=== PATIENT | male | born 1985 | race African-American/Black ===

== ENCOUNTER 2019-03-28 17:32 | Emergency (ER) | payer SELFPAY ==
[2019-03-28 19:05] VITALS: BP 110/80
--- NOTE | 2019-03-28 19:44 | UC ---
HPI Wound/Suture Re-check - HPI Summary HPI Summary: Patient is a 34yo male presenting for suture removal after cutting his head with a coffee mug when he fell 1 week ago. Patient states 13 stitches were placed at [facility]. Notes some tenderness still. Denies drainage or bleeding. Denies fever and chills. Denies n/v. - History Of Current Complaint Chief Complaint: UCSkin Stated Complaint: SUTURE REMOVAL Hx Obtained From: Patient Severity: Mild Pain Intensity: 2 Pain Scale Used: 0-10 Numeric - Allergies/Home Medications Allergies/Adverse Reactions: Allergies Allergy/AdvReac Type Severity Reaction Status Date / Time shellfish derived Allergy Anaphylatic Verified 03/28/19 19:05 Shock Home Medications: Home Medications Albuterol HFA INHALER* [Ventolin HFA Inhaler*] 2 puff INH Q4H PRN 03/28/19 [ History Confirmed 03/28/19] PMH/Surg Hx/FS Hx/Imm Hx - Surgical History Surgical History: Yes Surgery Procedure, Year, and Place: tib/fib surgery - Social History Alcohol Use: Rare Substance Use Type: Marijuana Smoking Status (MU): Light Every Day Tobacco Smoker Review of Systems All Other Systems Reviewed And Are Negative: No Constitutional: Positive: Negative Skin: Positive: Other - multiple stitches in forehead lacerations Respiratory: Positive: Negative Cardiovascular: Positive: Negative Neurological: Positive: Negative Physical Exam Triage Information Reviewed: Yes Appearance: Well-Appearing, No Pain Distress Vital Signs: Initial Vital Signs Temp 98.6 F 03/28/19 19:00 Pulse 66 03/28/19 19:00 Resp 16 03/28/19 19:00 BP 110/80 03/28/19 19:00 Pulse Ox 100 03/28/19 19:00 Vital Signs Reviewed: Yes Eyes: Positive: Conjunctiva Clear ENT: Positive: Hearing grossly normal Neck: Positive: Supple Respiratory: Positive: No respiratory distress Neurological: Positive: Alert Psychological: Positive: Age Appropriate Behavior Skin: Positive: Other - multiple healing lacerations noted on forehead. no drainage. no signs of infection. Course/Dx - Course Course Of Treatment: I removed 12 sutures from patient's forehead. He states 13 were placed so it is possible one already fell out. Discussed to continue with gently wsah and to apply scar cream once fully healed. Patient voiced understanding and agreed with treatment plan. - Diagnosis Provider Diagnosis: Encounter for removal of sutures Discharge ED - Sign-Out/Discharge Documenting (check all that apply): Patient Departure All imaging exams completed and their final reports reviewed: No Studies - Discharge Plan Condition: Stable Disposition: HOME Additional Instructions: As discussed, 12 stitches were removed fro your forehead. It is possible that the last stitch already fell out on its own. Continue to wash gently with soap and water daily. When scabs have fully healed and fallen off, you may start to use an over the counter scar cream to help reduce scarring. Return or go to the Ed if you notice any redness, warmth, or drainage from the wounds. - Billing Disposition and Condition Condition: STABLE Disposition: Home
== END 2019-03-28 19:53 | disposition home or self-care (01) ==
LOC: UCCORT 17:32
DX: S01.81XD Laceration without foreign body of other part of head, subsequent encounter (principal); F17.290 Nicotine dependence, other tobacco product, uncomplicated; Z91.013 Allergy to seafood; W45.8XXD Other foreign body or object entering through skin, subsequent encounter
CPT/HCPCS: 99201; G0463

== ENCOUNTER 2023-03-30 10:13 | Observation (INO) ==
[2023-03-30 11:44] LABS: ABS Basophils 0.1 10^3/uL (0.0-0.1); ABS Lymphocytes 1.5 10^3/uL (1.0-4.8); ABS Monocytes 0.3 10^3/uL (0.0-1.1); ABS Nucleated RBC 0.02 10^3/ul; Eosinophil % 0.2 %; Hematocrit 43.3 % (38-53); Hemoglobin 14.8 g/dL (13.2-16.3); Lymphocyte % 14.8 %; Mean Corpuscular Hemoglobin 29.7 pg (27-33); Mean Corpuscular Hgb Conc 34.2 g/dL (31-36); Mean Corpuscular Volume 86.7 fL (80-97); Mean Platelet Volume 6.7 fL (7.5-11.2); Nucleated Red Blood Cells % 0.2 %/100WBC (0.0-0.8); Platelet Count 294 10^3/uL (150-450); White Blood Count 9.9 10^3/uL (3.6-10.2)
[2023-03-30 12:01] LABS: ALT 19 U/L (7-52); AST 22 U/L (13-39); Albumin 4.4 g/dL (3.2-5.2); Albumin/Globulin Ratio 1.5 (1-3); Alkaline Phosphatase 71 U/L (35-149); Anion Gap 6 mmol/L (2-16); Blood Urea Nitrogen 13 mg/dL (6-24); CO2 Carbon Dioxide 27 mmol/L (22-32); Calcium 9.2 mg/dL (8.6-10.3); Chloride 105 mmol/L (101-111); Creatinine, Serum 1.02 mg/dL (0.67-1.17); Globulin 2.9 g/dL (2-4); Glucose 124 mg/dL (70-100); Magnesium 1.9 mg/dL (1.9-2.7); Potassium 3.9 mmol/L (3.5-5.0); Sodium 138 mmol/L (135-145); Total Bilirubin 0.5 mg/dL (0.2-1.0); Total Protein 7.3 g/dL (6.4-8.9); eGFR CKD-EPI 97.1 (>60)
[2023-03-30 12:02] LABS: INR 1.04 (0.83-1.13)
[2023-03-30 12:07] LABS: High Sens Troponin Baseline 8 pg/mL (<20)
[2023-03-30 12:30] LABS: Alcohol, S < 13 mg/dL (<13)
[2023-03-30 13:10] LABS: High Sensitivity Troponin 1 Hr 7 pg/mL (<20)
[2023-03-30] MEDS ORDERED: Famotidine IV 10 MG/ML 2 ml VIAL (20 mg) IV SLOW PU ONE (14:29)
[2023-03-30] MEDS ORDERED: Al Hydrox/Mg Hydrox/Simet LIQ 30 ML UDC PO ONE (14:29)
[2023-03-30] MEDS: Nicotine GUM 2MG FRUIT FLAVOR PO PRN (17:46)
[2023-03-31] MEDS: Nicotine PATCH 7 MG/24 HR PATCH TRANSDERM SCH (09:33)
[2023-03-31] MEDS ORDERED: Lorazepam PYXIS KEY PRN (15:15)
[2023-03-31] MEDS ORDERED: LORazepam 2 mg VIAL 1 ml IV PUSH ONE (15:15)
[2023-03-31 15:32] LABS: HDL Cholesterol 73.1 mg/dL
[2023-03-31 16:09] LABS: Urine Benzodiazepine Screen None Detected (None Detect); Urine Cannabinoids Screen Presumptive Positive (None Detect); Urine Opiates Screen None Detected (None Detect)
[2023-04-01] MEDS ORDERED: Aspirin EC 81 mg TAB.EC (enteric coated) PO SCH (09:00)
[2023-04-01 09:02] LABS: ABS Eosinophils 0.1 10^3/uL (0.0-0.5); ABS Monocytes 0.8 10^3/uL (0.0-1.1); ABS Neutrophils 4.5 10^3/uL (1.5-7.6); ABS Nucleated RBC 0.02 10^3/ul; Hematocrit 45.6 % (38-53); Hemoglobin 15.4 g/dL (13.2-16.3); Lymphocyte % 27.1 %; Mean Corpuscular Hemoglobin 29.4 pg (27-33); Mean Corpuscular Hgb Conc 33.7 g/dL (31-36); Mean Corpuscular Volume 87.1 fL (80-97); Mean Platelet Volume 7.1 fL (7.5-11.2); Nucleated Red Blood Cells % 0.3 %/100WBC (0.0-0.8); Platelet Count 326 10^3/uL (150-450); Red Blood Count 5.24 10^6/uL (4.06-5.63); Red Cell Distribution Width 13.8 % (12-17); White Blood Count 7.3 10^3/uL (3.6-10.2)
[2023-04-01 09:25] LABS: Albumin 4.5 g/dL (3.2-5.2); Albumin/Globulin Ratio 1.5 (1-3); Calcium 9.6 mg/dL (8.6-10.3); Creatinine, Serum 1.13 mg/dL (0.67-1.17); HDL Cholesterol 69.2 mg/dL; Magnesium 2.2 mg/dL (1.9-2.7); Potassium 4.5 mmol/L (3.5-5.0); Total Protein 7.5 g/dL (6.4-8.9); eGFR CKD-EPI 85.9 (>60)
[2023-04-01] MEDS ORDERED: Regadenoson 0.4 MG/5 ML SYRINGE ONE (10:21)
[2023-04-01] MEDS ORDERED: Aminophylline 25 MG/ML VIAL ONE (10:21)
[2023-04-01] MEDS ORDERED: Ondansetron 4 mg VIAL 2 MG/ML 2 ml VIAL ONE (10:30)
[2023-04-01] MEDS: Nicotine PATCH 7 MG/24 HR PATCH TRANSDERM SCH (15:18)
[2023-04-01] MEDS: Nicotine GUM 2MG FRUIT FLAVOR PO PRN (15:35)
[2023-04-01 15:40] VITALS: BP 131/82
== END 2023-04-01 18:05 | disposition home or self-care (01) ==
LOC: ED 10:13 → EDHOLD 10:13 → SUATTDRO 15:18 → EDHOLD 03-31 15:23 → MEDTELE 03-31 15:25
PROVIDERS: ADMIT Internal Medicine; ATTEND Student in an Organized Health Care Education/Training Program

== ENCOUNTER 2023-12-01 14:28 | Observation (INO) ==
[2023-12-01 14:55] LABS: ABS Basophils 0.1 10^3/uL (0.0-0.1); ABS Eosinophils 0.2 10^3/uL (0.0-0.5); ABS Lymphocytes 1.7 10^3/uL (1.0-4.8); ABS Monocytes 0.6 10^3/uL (0.0-1.1); ABS Neutrophils 4.5 10^3/uL (1.5-7.6); Eosinophil % 2.3 %; Hematocrit 39.6 % (38-53); Hemoglobin 13.6 g/dL (13.2-16.3); Lymphocyte % 24.4 %; Mean Corpuscular Hemoglobin 29.7 pg (27-33); Mean Corpuscular Hgb Conc 34.4 g/dL (31-36); Mean Corpuscular Volume 86.5 fL (80-97); Mean Platelet Volume 6.8 fL (7.5-11.2); Platelet Count 287 10^3/uL (150-450); Red Blood Count 4.57 10^6/uL (4.06-5.63); Red Cell Distribution Width 14.4 % (12-17); White Blood Count 7.1 10^3/uL (3.6-10.2)
[2023-12-01 15:07] LABS: INR 1.05 (0.83-1.13)
[2023-12-01 15:21] LABS: High Sens Troponin Baseline 7 pg/mL (<20)
[2023-12-01 15:38] LABS: ALT 24 U/L (7-52); AST 50 U/L (13-39); Albumin 4.3 g/dL (3.2-5.2); Albumin/Globulin Ratio 1.5 (1-3); Alkaline Phosphatase 80 U/L (35-149); Anion Gap 7 mmol/L (2-16); Blood Urea Nitrogen 15 mg/dL (6-24); CO2 Carbon Dioxide 26 mmol/L (22-32); Calcium 9.3 mg/dL (8.6-10.3); Chloride 105 mmol/L (101-111); Creatinine, Serum 0.98 mg/dL (0.67-1.17); Globulin 2.9 g/dL (2-4); Glucose 137 mg/dL (70-100); Sodium 138 mmol/L (135-145); Total Bilirubin 0.5 mg/dL (0.2-1.0); Total Protein 7.2 g/dL (6.4-8.9); eGFR CKD-EPI 101.9 (>60)
[2023-12-01] MEDS: Acetaminophen IV 1 GM/100ML 1,000 MG/100 ML BAG IV ONE (15:46)
[2023-12-01] MEDS: Lactated Ringers 1000 ml BAG 1,000 ML IV ONE ×2 (15:47→17:46)
[2023-12-01 15:54] LABS: Alcohol, S < 13 mg/dL (<13)
[2023-12-01 16:13] LABS: Prolactin 2.1 ng/mL (1.0-20.0)
[2023-12-01 16:24] LABS: Creatine Kinase 3012 U/L (10-223)
[2023-12-01 16:52] LABS: High Sensitivity Troponin 1 Hr 8 pg/mL (<20)
[2023-12-01] MEDS: Iohexol 350 (CONTRAST) 500 ML MDV IV ONE (17:00)
[2023-12-01] MEDS: Nitro 2% OINT (Nitroglycerin) 1 INCH/PAK TOPICAL ONE (18:11)
[2023-12-01 21:27] LABS: Urine Appearance Clear; Urine Bilirubin Negative (Negative); Urine Blood Negative (Negative); Urine Color Yellow; Urine Glucose Negative (Negative); Urine Ketones Negative (Negative); Urine Nitrite Negative (Negative); Urine Protein Trace (Negative); Urine Specific Gravity >1.050 (1.002-1.030); Urine Urobilinogen Negative (Negative)
[2023-12-02] MEDS: Lactated Ringers 1000 ml BAG 1,000 ML IV SCH (00:05)
[2023-12-02] MEDS: Acetaminophen IV 1 GM/100ML 1,000 MG/100 ML BAG IV PRN (00:05)
[2023-12-02] MEDS: Acetaminophen IV 1 GM/100ML 1,000 MG/100 ML BAG IV ONE (00:27)
[2023-12-02] MEDS ORDERED: Albuterol HFA INHALER 8 gm MDI INH PRN (00:55)
[2023-12-02] MEDS ORDERED: Nicotine GUM 4MG FRUIT FLAVOR PO PRN (01:00)
[2023-12-02 06:23] LABS: ABS Eosinophils 0.3 10^3/uL (0.0-0.5); ABS Lymphocytes 2.1 10^3/uL (1.0-4.8); ABS Monocytes 0.6 10^3/uL (0.0-1.1); ABS Neutrophils 4.3 10^3/uL (1.5-7.6); Eosinophil % 3.7 %; Hematocrit 39.4 % (38-53); Hemoglobin 13.4 g/dL (13.2-16.3); Mean Corpuscular Hemoglobin 29.6 pg (27-33); Mean Corpuscular Hgb Conc 34.1 g/dL (31-36); Mean Corpuscular Volume 86.9 fL (80-97); Mean Platelet Volume 7.2 fL (7.5-11.2); Platelet Count 269 10^3/uL (150-450); Red Blood Count 4.54 10^6/uL (4.06-5.63); Red Cell Distribution Width 13.9 % (12-17); White Blood Count 7.3 10^3/uL (3.6-10.2)
[2023-12-02 07:20] LABS: Magnesium 1.9 mg/dL (1.9-2.7)
[2023-12-02 07:36] LABS: Anion Gap 6 mmol/L (2-16); Blood Urea Nitrogen 10 mg/dL (6-24); CO2 Carbon Dioxide 26 mmol/L (22-32); Calcium 8.6 mg/dL (8.6-10.3); Chloride 105 mmol/L (101-111); Glucose 94 mg/dL (70-100); Sodium 137 mmol/L (135-145); eGFR CKD-EPI 116.9 (>60)
[2023-12-02] MEDS: Aspirin EC 81 mg TAB.EC (enteric coated) PO SCH (07:51)
[2023-12-02] MEDS: Ondansetron ODT 4 mg TAB 4 MG TAB PO PRN (08:33)
[2023-12-02] MEDS ORDERED: Ondansetron 4 mg VIAL 2 MG/ML 2 ml VIAL IV PRN ×2 (13:14→13:28)
[2023-12-02] MEDS: Prochlorperazine 5 mg/ml 2 ml VIAL (10 mg) IV ONE (13:17)
[2023-12-03 06:58] LABS: ABS Basophils 0.1 10^3/uL (0.0-0.1); ABS Lymphocytes 1.7 10^3/uL (1.0-4.8); ABS Monocytes 0.9 10^3/uL (0.0-1.1); ABS Neutrophils 7.8 10^3/uL (1.5-7.6); ABS Nucleated RBC 0.01 10^3/ul; Eosinophil % 0.1 %; Hemoglobin 14.2 g/dL (13.2-16.3); Lymphocyte % 16.3 %; Mean Corpuscular Hemoglobin 29.2 pg (27-33); Mean Corpuscular Hgb Conc 33.9 g/dL (31-36); Mean Corpuscular Volume 85.9 fL (80-97); Nucleated Red Blood Cells % 0.1 %/100WBC (0.0-0.8); Platelet Count 307 10^3/uL (150-450); Red Blood Count 4.89 10^6/uL (4.06-5.63); White Blood Count 10.5 10^3/uL (3.6-10.2)
[2023-12-03 07:16] LABS: Calcium 8.7 mg/dL (8.6-10.3); Creatinine, Serum 0.89 mg/dL (0.67-1.17); Magnesium 1.9 mg/dL (1.9-2.7); Potassium 4.1 mmol/L (3.5-5.0); eGFR CKD-EPI 113.2 (>60)
[2023-12-03] MEDS: Sulfur Hexaflouride MICROSPHR 25 MG VIAL IV ONE (11:09)
[2023-12-03 13:45] VITALS: BP 115/80
== END 2023-12-03 14:33 | disposition home or self-care (01) ==
LOC: EDHOLD 14:28 → ED 14:28 → SUATTDRO 22:53 → MEDTELE 12-02 16:37
PROVIDERS: ADMIT Internal Medicine; ATTEND Student in an Organized Health Care Education/Training Program